=== PATIENT | male | born 1990 | race Caucasian/White ===

== ENCOUNTER 2017-12-28 14:48 | Emergency (ER) | payer OTHER ==
[~2017-12-28] VITALS: Ht 160 cm; Wt 58.0 kg
[2017-12-28 15:04] VITALS: Ht 160 cm; Wt 58.0 kg
[2017-12-28 16:33] VITALS: BP 135/85
== END 2017-12-28 16:43 | disposition home or self-care (01) ==
LOC: ED 14:48
DX: K52.9 Noninfective gastroenteritis and colitis, unspecified (principal)